=== PATIENT | female | born 1960 | race Two or more races ===

== ENCOUNTER 2022-11-06 13:12 | Emergency (ER) | payer OTHER ==
[~2022-11-06] VITALS: Ht 160 cm; Wt 68.0 kg
[2022-11-06] MEDS ORDERED: ZESTRIL40 M1 PO (13:28)
[2022-11-06] MEDS ORDERED: CRESTOR40 MG PO (13:29)
== END 2022-11-06 13:56 | disposition home or self-care (01) ==
LOC: ER 13:12
DX: I10 Essential (primary) hypertension (principal); Z88.6 Allergy status to analgesic agent

== ENCOUNTER 2024-10-18 19:06 | Emergency (ER) | payer OTHER ==
[~2024-10-18] VITALS: Ht 162.6 cm; Wt 67.1 kg
[~2024-10-18 19:06] MED LIST: CRESTOR40 MG PO; ZESTRIL40 M1 PO
[2024-10-18] MEDS ORDERED: ALENDRONATE SODI5 MG (19:12)
[2024-10-18] MEDS ORDERED: LEVOTHYROXINE25 MCG (19:12)
[2024-10-18] MEDS ORDERED: GUAIFENESIN 200 MG/10 ML BLIST.PACK PO ONE ×2 (19:45→19:53)
[2024-10-18] MEDS ORDERED: IPRATROPIUM BROMIDE 0.5 MG/2.5 ML AMPUL.NEB IH SCH (19:45)
[2024-10-18 20:11] LABS: HEMATOCRIT 34.2 % (36.0-45.00); HEMOGLOBIN 11.9 g/dL (12.0-15.00); MEAN CELL VOLUME 91.7 fL (80.00-100.00); MEAN CORPUSCULAR HEMOGLOBIN 31.8 pg (27.00-32.0); MEAN CORPUSCULAR HGB CONC 34.7 g/dl (32.0-36.0); PLATELET COUNT 272 K/uL (150-450); RED BLOOD COUNT 3.73 M/uL (4.00-6.00); RED CELL DISTRIBUTION WIDTH 12.5 % (11.5-14.5)
[2024-10-18] MEDS ORDERED: IPRATROPIUM BROMIDE 0.5 MG/2.5 ML AMPUL.NEB IH ONE (20:13)
[2024-10-18 20:32] LABS: COVID-19 AG NEGATIVE (NEGATIVE); INFLUENZA A AG NEGATIVE (NEGATIVE)
== END 2024-10-18 22:02 | disposition home or self-care (01) ==
LOC: ER 19:06
PROVIDERS: General Practice
DX: R05.3 Chronic cough (principal); Z88.6 Allergy status to analgesic agent; Z20.822 Contact with and (suspected) exposure to COVID-19